=== PATIENT | female | born 1980 | race Caucasian/White ===

== ENCOUNTER 2018-05-22 16:30 | Emergency (ER) | payer MEDICAID ==
[~2018-05-22] VITALS: Ht 162.6 cm; Wt 81.0 kg
[2018-05-22 16:37] VITALS: BP 121/95
--- NOTE | 2018-05-22 16:54 | NUR ---
PATIENT PRESENTS TO ED WITH c/o lips swelling dryness chapped redness stinging x 4 days ago swelling reduced tuesday and exacerbated again sun----denies sob, denies new foods or products full clear speech---localized . DENIES N/V/D; SKIN IS PINK/WARM/DRY; AAOX4 WITH EVEN AND STEADY GAIT; LUNGS CLEAR BL; HR EVEN AND REGULAR; PT DENIES ANY FEVER, CP, SOB, OR COUGH AT THIS TIME; PATIENT STATES PAIN OF 8/10 AT THIS TIME; VSS; PATIENT POSITIONED FOR COMFORT; HOB ELEVATED; BEDRAILS UP X2; BED DOWN. ER MD MADE AWARE OF PT STATUS.
[2018-05-22] MEDS ORDERED: DEXAMETHASONE 10 MG/ML VIAL IM ONE (17:35)
[2018-05-22 18:28] VITALS: BP 128/71
--- NOTE | 2018-05-22 18:31 | NUR ---
Patient discharged with v/s stable. Written and verbal after care instructions given and explained. Patient alert, oriented and verbalized understanding of instructions. Ambulatory with steady gait. All questions addressed prior to discharge. ID band removed. Patient advised to follow up with PMD. Rx of ACYCLOVIR/ HYDROXYZINE/PREDNISONE given. Patient educated on indication of medication including possible reaction and side effects. Opportunity to ask questions provided and answered.
== END 2018-05-22 18:31 | disposition home or self-care (01) ==
LOC: MED 16:30
DX: L29.9 Pruritus, unspecified (principal); I10 Essential (primary) hypertension
CPT/HCPCS: 96372; 99283; J1100; Q0163

== ENCOUNTER 2018-11-08 14:05 | Emergency (ER) | payer MEDICAID ==
[~2018-11-08] VITALS: Ht 162.6 cm; Wt 77.1 kg
[2018-11-08 14:10] VITALS: BP 137/92
--- NOTE | 2018-11-08 14:12 | NUR ---
PATIENT TAKEN TO BED 5.
--- NOTE | 2018-11-08 14:30 | NUR ---
PT C/O ABDOMINAL PAIN RADIATING TO FLANK AREAS BILATERALLY FOR 10 DAYS, DULL /10. PT ALSO REPORTS DIARRHEA FOR 2 DAYS. DENIES NAUSEA OR VOMITING; VSS; PATIENT POSITIONED FOR COMFORT; HOB ELEVATED; BEDRAILS UP X1; BED DOWN. ER MD MADE AWARE OF PT STATUS.
[2018-11-08 14:50] VITALS: BP 124/81
== END 2018-11-08 14:50 | disposition home or self-care (01) ==
LOC: MED 14:05
DX: N39.0 Urinary tract infection, site not specified (principal); R19.7 Diarrhea, unspecified; I10 Essential (primary) hypertension; Z90.89 Acquired absence of other organs; Z88.5 Allergy status to narcotic agent
CPT/HCPCS: 81002; 81025; 99283

== ENCOUNTER 2022-09-22 22:34 | Emergency (ER) | payer MEDICAID, OTHER ==
[~2022-09-22] VITALS: Ht 162.6 cm; Wt 72.6 kg
[2022-09-22 23:00] VITALS: BP 143/93; PULSE 89; RESP 17; TEMP 98; O2SAT 97
--- NOTE | 2022-09-23 00:17 | NUR ---
CALLED IN LOBBY AND OUTSIDE, NO ANSWER. LWBS
== END 2022-09-23 00:17 | disposition left against medical advice (07) ==
LOC: MED 22:34
DX: R51.9 Headache, unspecified (principal); Z53.21 Procedure and treatment not carried out due to patient leaving prior to being seen by health care provider
CPT/HCPCS: 99281

== ENCOUNTER 2023-05-11 18:30 | Emergency (ER) | payer OTHER ==
[~2023-05-11] VITALS: Ht 160 cm; Wt 74.8 kg
[2023-05-11 18:59] VITALS: BP 145/105; PULSE 106; RESP 20; TEMP 96.9; O2SAT 100
[2023-05-11] MEDS ORDERED: IBUP-2213 PO (19:29)
[2023-05-11] MEDS ORDERED: METH-1867 PO (19:29)
[2023-05-11] MEDS: KETOROLAC 60 MG/2 ML VIAL IM ONE (19:32)
[2023-05-11] MEDS: methocarbamoL 500 MG TAB PO ONE (19:33)
[2023-05-11 20:28] VITALS: BP 145/105; PULSE 106; RESP 20; TEMP 96.9; O2SAT 100
== END 2023-05-11 20:28 | disposition left against medical advice (07) ==
LOC: MED 18:30
DX: S39.012A Strain of muscle, fascia and tendon of lower back, initial encounter (principal); I10 Essential (primary) hypertension; Z88.5 Allergy status to narcotic agent; Z79.899 Other long term (current) drug therapy; X58.XXXA Exposure to other specified factors, initial encounter; Y93.89 Activity, other specified; Y92.89 Other specified places as the place of occurrence of the external cause; Y99.8 Other external cause status
CPT/HCPCS: 96372; 99283; J1885